=== PATIENT | female | born 1990 | race Caucasian/White ===

== ENCOUNTER 2019-08-29 04:54 | Inpatient (IN) | payer OTHER, SELFPAY ==
[2019-08-29] VITALS (74 sets, daily range): BP systolic 91–143; BP diastolic 54–97; PULSE 73–107; TEMP 36.4–37.2; O2SAT 98–100; BMI 33.7
--- NOTE | 2019-08-29 04:54 | LDADM ---
This patient, Jessika Armenta, was admitted to Labor/Delivery/Recovery 107 on 08/29/19 at 04:54. Plans for labor, pain management and were discussed with patient. Patient/family oriented to hospital policies and general routines including ID bracelet, bed and alarms, visiting hours, pain management, procedures, bathroom and other care routines, personal items, smoking policy, room service/diet and guest tray routines, security routines, and visiting hours. Patient/Family are encouraged to report perceived risks to care and to ask questions if they do not understand what they are told or what they should do. See OBIX for further documentation.
[2019-08-29 05:55] LABS: Basophils Absolute Auto 0.1 K/mm3 (0.0-0.1); Basophils Percent Auto 0.5 % (0.2-1.2); Eosinophils Absolute Auto 0.2 K/mm3 (0-0.3); Eosinophils Percent Auto 1.4 % (0-4.4); Hematocrit 37.2 % (37.0-47.0); Hemoglobin 12.8 g/dL (12.0-15.0); Immature Granulocyte Absolute 0.09 K/mm3 (0.00-0.031); Immature Granulocyte Percent A 0.8 % (0-0.5); Lymphocytes Absolute Auto 2.21 K/mm3 (0.9-3.2); Lymphocytes Percent Auto 20.1 % (18.3-44.2); Mean Corpuscular HGB Conc 34.4 g/dl (32-36); Mean Corpuscular Volume 90.1 fl (80-100); Monocytes Absolute Auto 0.6 K/mm3 (0.1-0.6); Monocytes Percent Auto 5.8 % (2.6-8.5); Neutrophils Absolute Auto 7.9 K/mm3 (1.3-6.7); Neutrophils Percent Auto 71.4 % (45.5-73.1); Platelet Count Result 288 k/mm3 (150-375); Red Blood Count 4.13 M/mm3 (4.2-5.4); Red Cell Distribution Width 12.7 % (11.5-14.5)
[2019-08-29] MEDS: LACTATED RINGERS 1,000 ML 125 ML IV CONT ×3 (06:00→16:13)
[2019-08-29 06:55] LABS: HIV 1/2 Ab P24 Ag Result Negative (Negative)
--- NOTE | 2019-08-29 09:06 | WPDOBADMIT ---
Obstetrics - Admit Note Admission Note: record reviewed. No pertinent additions to the history and/or any subsequent changes in the physical findings that are not consistent with the expected course of the were found. Additions to the history and/or subsequent changes in the physical findings follow. None.Here for MIL. Cervix 3-4/50/-2 AROM with clear fluid. FHTs reactive
[2019-08-29 10:46] LABS: Rapid Plasma Reagin Non-Reactive (NonReactive)
--- NOTE | 2019-08-29 12:44 | WPDANESEPP ---
Anes - Eval Pre Procedure Procedure: labor pain management Date/Time: 08/29/19 12:44 Surgeon: macho Preop Diagnosis: pain during labor Pre Op Diagnosis: Induction of Labor Patient Data Age: 28 Gender: F Height: 5 ft 6 in Weight: 95 kg Last Vital Signs Temp 97.8 F 08/29/19 11:01 Pulse 81 08/29/19 12:16 BP 131/71 08/29/19 12:16 Allergies Allergy/AdvReac Type Severity Reaction Status Date / Time No Known Allergies Allergy Verified 08/06/19 12:35 Home Medications Medication Instructions Recorded Confirmed Type PNV cmb#95-ferrous fumarate-FA 1 tablet PO DAILY 08/06/19 08/06/19 History [] aspirin [Aspirin Low Dose] 81 mg PO DAILY 08/06/19 08/06/19 History ergocalciferol (vitamin D2) 1,250 mcg PO 2XW 08/06/19 08/06/19 History [Vitamin D2] Laboratory Tests 08/29/19 08/29/19 08/29/19 05:31 05:31 05:31 WBC 11.0 K/mm3 H K/mm3 (4.5-10.0) RBC 4.13 M/mm3 L M/mm3 (4.2-5.4) Hgb 12.8 g/dL g/dL (12.0-15.0) Hct 37.2 % % (37.0-47.0) MCV 90.1 fl fl (80-100) MCH 31.0 pg pg (26-34) MCHC 34.4 g/dl g/dl (32-36) RDW 12.7 % % (11.5-14.5) Plt Count 288 k/mm3 k/mm3 (150-375) MPV 11.0 fl H fl (7.4-10.4) Immature Gran % (Auto) 0.8 % H % (0-0.5) Neut % (Auto) 71.4 % % (45.5-73.1) Lymph % (Auto) 20.1 % % (18.3-44.2) [place] % (Auto) 5.8 % % (2.6-8.5) Eos % (Auto) 1.4 % % (0-4.4) Baso % (Auto) 0.5 % % (0.2-1.2) Lymph # (Auto) 2.21 K/mm3 K/mm3 (0.9-3.2) [place] # (Auto) 0.6 K/mm3 K/mm3 (0.1-0.6) Eos # (Auto) 0.2 K/mm3 K/mm3 (0-0.3) Baso # (Auto) 0.1 K/mm3 K/mm3 (0.0-0.1) Abs Immat Gran (auto) 0.09 K/mm3 H K/mm3 (0.00-0.031) Absolute Neuts (auto) 7.9 K/mm3 H K/mm3 (1.3-6.7) Absolute Nucleated RBC 0.0 K/mm3 K/mm3 (0.0-0.012) Nucleated RBC % 0.0 % % (0.0-0.2) RPR Non-reactive (NonReactive) HIV 1&2 Ab/P24 Ag 4thGn Blood Type O Positive Antibody Screen Negative 08/29/19 05:31 WBC RBC Hgb Hct MCV MCH MCHC RDW Plt Count MPV Immature Gran % (Auto) Neut % (Auto) Lymph % (Auto) [place] % (Auto) Eos % (Auto) Baso % (Auto) Lymph # (Auto) [place] # (Auto) Eos # (Auto) Baso # (Auto) Abs Immat Gran (auto) Absolute Neuts (auto) Absolute Nucleated RBC Nucleated RBC % RPR HIV 1&2 Ab/P24 Ag 4thGn Negative (Negative) Blood Type Antibody Screen : gestational age (EDC 08/29/19) Patient hx anesthesia problems: none Family hx anesthesia problems: none [facility] [place] Past Medical History Medical History (Updated 08/29/19 @ 12:44 by Darcie Stewart CRNA) Uterine polyp Surgical History Surgical History (Updated 08/29/19 @ 12:44 by Darcie Stewart CRNA) H/O eye surgery Family History Family History (Updated 08/06/19 @ 12:39 by Treasure De La Rosa RN) Mother H/O thyroidectomy Father High cholesterol Acute myocardial infarction Grandparent Congestive heart failure Social History Social History Smoking status: Never smoker Substance use: never Spiritual care concerns: No Exam Day of Procedure 08/29/19 12:44
[2019-08-29] MEDS: ONDANSETRON INJ 4 MG/2 ML VIAL IV PUSH (15:27)
--- NOTE | 2019-08-29 18:34 | P.PCNOB_ITS ---
OB - Delivery Note Procedure Delivery date: 08/29/19 Procedure: events: Labor Induction Intrapartal events: None Induction method: AROM and per pitocin protocol Delivery monitor: external FHT and internal uterine Route of delivery: Laceration description: Perineal - 2nd Degree Delivery repair: vicryl (3-0) Specimen: No Estimated blood loss (mL): 100 Anesthesia type: Epidural [place] Baby Date of : 08/29/19 Weeks of gestation at delivery: 39 Infant gender: Male Weight (pounds): 6 Weight (ounces): 14 presentation: vertex position: Right Occiput Anterior Placenta delivery description: Spontaneous cord vessel description: 3 Vessels score one minute: 9 score five minutes: 9
--- NOTE | 2019-08-29 18:35 | PM.OBDSVD ---
DS: Admitting Diagnosis Admitting Diagnosis Admitting Diagnosis: IUP 39 wk DS: Discharge Diagnosis Discharge Diagnosis (1) (normal spontaneous vaginal delivery): Code(s): O80 - Encounter for full-term uncomplicated delivery Status: Acute OB - DS: Summary OB Procedures : Ultrasound OB Procedures Intrapartum: Spontaneous Vag Delivery OB Procedures: : None Peripartum Data Delivery Method: Natural Vaginal Laceration description: Perineal - 2nd Degree complications: none Status at Discharge Functional status at discharge: independent ambulation Overall status at discharge: patient is progressing back to baseline Time Spent with Patient Time attestation: Total time spent providing and/or coordinating discharge services: DS: Data Data Completed and Pending Labs on day of discharge: Labs from last 24 hours 08/29/19 08/29/19 08/29/19 05:31 05:31 05:31 WBC RBC Hgb Hct MCV MCH MCHC RDW Plt Count MPV Immature Gran % (Auto) Neut % (Auto) Lymph % (Auto) [place] % (Auto) Eos % (Auto) Baso % (Auto) Lymph # (Auto) [place] # (Auto) Eos # (Auto) Baso # (Auto) Abs Immat Gran (auto) Absolute Neuts (auto) Absolute Nucleated RBC Nucleated RBC % RPR Non-reactive HIV 1&2 Ab/P24 Ag 4thGn Negative Blood Type O Positive Antibody Screen Negative 08/29/19 05:31 WBC 11.0 H RBC 4.13 L Hgb 12.8 Hct 37.2 MCV 90.1 MCH 31.0 MCHC 34.4 RDW 12.7 Plt Count 288 MPV 11.0 H Immature Gran % (Auto) 0.8 H Neut % (Auto) 71.4 Lymph % (Auto) 20.1 [place] % (Auto) 5.8 Eos % (Auto) 1.4 Baso % (Auto) 0.5 Lymph # (Auto) 2.21 [place] # (Auto) 0.6 Eos # (Auto) 0.2 Baso # (Auto) 0.1 Abs Immat Gran (auto) 0.09 H Absolute Neuts (auto) 7.9 H Absolute Nucleated RBC 0.0 Nucleated RBC % 0.0 RPR HIV 1&2 Ab/P24 Ag 4thGn Blood Type Antibody Screen Discharge Plan Discharge Attending physician on discharge: Malia Salinas Discharging Clinician: Malia Salinas Anticipated Discharge Date/Time: 08/31/19 18:36 Patient Disposition: Home, Self-Care Activity: may shower and pelvic rest Diet: regular Patient Instructions: Antibiotic Form Stand Alone Forms: General Discharge Information Follow-up/Referrals: Malia Salinas MD [Physician] - 6 Weeks Discharge Medications: Continued ergocalciferol (vitamin D2) [Vitamin D2] 1,250 mcg (50,000 unit) Capsule 1,250 mcg PO 2XW RF: 0 PNV cmb#95-ferrous fumarate-FA [] 28 mg iron- 800 mcg Tablet 1 tablet PO DAILY RF: 0 Discontinued aspirin [Aspirin Low Dose] 81 mg Tablet,Delayed Release (Dr/Ec) 81 mg PO DAILY RF: 0 Date of admission: 08/29/19 04:54 Primary Care Provider: PHYSICIAN,SAWMILL EQUIPMENT OPERATOR Admitting Provider: Malia Salinas Attending physician on admission: Malia Salinas Condition: Stable
[2019-08-29] MEDS: OXYTOCIN 30 UNITS/NS 500 ML 30 UNITS/500 ML BAG 125 UNITS IV CONT (18:49)
[2019-08-29] MEDS: IBUPROFEN 600 MG TABLET PO (20:03)
[2019-08-29] MEDS: BENZOCAINE 20% AER SPR (*SP) 56 GM CAN 1 SPRAY TOPICAL (20:03)
[2019-08-29] MEDS: WITCH HAZEL 40 PADS 1 PAD TOPICAL (20:03)
--- NOTE | 2019-08-29 20:45 | PC.NURSE ---
This patient, Jessika Armenta, was received from Labor and Delivery on 08/29/19 at 2042. Personal belongings list checked and signed. Patient/family oriented to unit policies and routines
[2019-08-30 05:33] LABS: Hematocrit 32.7 % (37.0-47.0); Hemoglobin 10.9 g/dL (12.0-15.0)
[2019-08-30 08:00] VITALS: BP 131/71; PULSE 94; RESP 20; TEMP 36.6
[2019-08-30] MEDS: IBUPROFEN 600 MG TABLET PO ×3 (09:07→18:29)
[2019-08-30] MEDS: DOCUSATE SODIUM 100 MG CAPSULE PO ×2 (09:08→17:07)
[2019-08-30] MEDS: MULTIVIT/MIN/PREN/FOL AC/IRON TABLET 1 TAB PO (09:08)
--- NOTE | 2019-08-30 10:06 | WPDANLDPN2 ---
Anes-Prog Note L&D Date/Time: 08/30/19 10:06 Comfortable throughout: labor and delivery Neuraxial method: epidural Epidural/Spinal procedure site: clean & non-tender Neuro status: Neuro function grossly intact. Cardiovascular status: normal Respiratory status: normal Airway patency: baseline Mental status: baseline Post-Op hydration status: normal Vital Signs: Last Vital Signs Temp 36.6 C 08/30/19 08:00 Pulse 94 08/30/19 08:00 Resp 20 08/30/19 08:00 BP 131/71 08/30/19 08:00 Pulse Ox 99 08/29/19 13:40 Pain score (VAS): 0/10. Patient resting in bed at time of assessment, support person at bedside. I/O: Intake & Output 08/29/19 08/30/19 08/30/19 23:59 07:59 15:59 Intake Total 1999 Output Total 173 Balance 1827 Post-procedural complaints: none Patient feedback: Patient satisfied with anesthetic care.
--- NOTE | 2019-08-30 10:39 | PM.OBPNVD ---
OB - PN: Subj Subjective Date/time seen: 08/30/19 10:39 Patient comments: no complaints and pain well controlled baby status: doing well OB - PN: Obj Data Labs CBC & Chem 7: 08/30/19 04:34 Labs: Laboratory Results - last 24 hr 08/29/19 08/30/19 05:31 04:34 Hgb 10.9 L Hct 32.7 L RPR Non-reactive OB - PN A/P Plan day: 1 Plan: routine care Time Spent With Patient Time: Total time spent is greater than 50% in coordination of care (as documented) at patient's floor/unit and/or counseling patient: Exam : Bimanual exam- vagina & uterus: other (Uterus firm, nt @U)
[2019-08-30] MEDS: BENZOCAINE 20% AER SPR (*SP) 56 GM CAN 1 SPRAY TOPICAL (14:09)
[2019-08-30] MEDS: WITCH HAZEL 40 PADS 1 PAD TOPICAL (14:09)
[2019-08-30 19:01] VITALS: BP 129/78; PULSE 94; RESP 16; TEMP 36.6; O2SAT 99
--- NOTE | 2019-08-31 03:58 | PM.OBPNVD ---
OB - PN: Subj Subjective Date/time seen: 08/31/19 03:58 Patient comments: no complaints and pain well controlled baby status: doing well OB - PN: Obj Data Labs CBC & Chem 7: 08/30/19 04:34 Labs: Laboratory Results - last 24 hr 08/30/19 04:34 Hgb 10.9 L Hct 32.7 L OB - PN A/P Plan day: 2 Plan: routine care, discharge home and follow up 6 weeks Time Spent With Patient Time: Total time spent is greater than 50% in coordination of care (as documented) at patient's floor/unit and/or counseling patient: Exam : Bimanual exam- vagina & uterus: other (Uterus firm, nt @U)
[2019-08-31] MEDS: MULTIVIT/MIN/PREN/FOL AC/IRON TABLET 1 TAB PO (07:56)
[2019-08-31] MEDS: BENZOCAINE 20% AER SPR (*SP) 56 GM CAN 1 SPRAY TOPICAL (07:56)
[2019-08-31] MEDS: DOCUSATE SODIUM 100 MG CAPSULE PO (07:56)
[2019-08-31] MEDS: WITCH HAZEL 40 PADS 1 PAD TOPICAL (07:56)
[2019-08-31 08:00] VITALS: BP 132/78; PULSE 78; RESP 18; TEMP 36.4
--- NOTE | 2019-08-31 09:19 | PC.NURSE ---
Self care and infant care discharge instructions given including follow up visit date and time. Mother verbalized understanding of infant care. FOB at side. Very pleasant and cooperative. Anxious for discharge.
[2019-09-02 09:51] VITALS: BP 126/79; PULSE 103; RESP 20; TEMP 37.1; O2SAT 99
== END 2019-08-31 10:47 | disposition home or self-care (01) | DRG 807 ==
LOC: ANHLDR 18:37 → ANHOB2 21:07
PROVIDERS: Admitting Provider Obstetrics & Gynecology Gynecology; Visit Provider Obstetrics & Gynecology Gynecology
DX: O76 Abnormality in fetal heart rate and rhythm complicating labor and delivery (principal); Z37.0 Single live birth; O70.1 Second degree perineal laceration during delivery; Z3A.39 39 weeks gestation of pregnancy
CPT/HCPCS: 36415; 85014; 85018; 85025; 86592; 86703; 86850; 86900; 86901; A9270; G0432; J2405; J2590; J2795; J7120

== ENCOUNTER 2022-03-01 12:08 | Outpatient (CLI) | payer OTHER, SELFPAY ==
[2022-03-01 12:28] VITALS: BP 126/76; PULSE 87
[2022-03-01 12:30] VITALS: BP 126/76; PULSE 87; BMI 34.1
[2022-03-01 12:45] VITALS: BP 122/79; PULSE 81
[2022-03-01 12:51] LABS: Basophils Percent Auto 0.2 % (0.2-1.2); Eosinophils Percent Auto 0.4 % (0-4.4); Hematocrit 39.4 % (37.0-47.0); Hemoglobin 13.3 g/dL (12.0-15.0); Immature Granulocyte Absolute 0.05 K/mm3 (0.00-0.031); Immature Granulocyte Percent A 0.5 % (0-0.5); Lymphocytes Absolute Auto 2.12 K/mm3 (0.9-3.2); Lymphocytes Percent Auto 20.5 % (18.3-44.2); Mean Corpuscular HGB Conc 33.8 g/dl (32-36); Mean Corpuscular Volume 88.9 fl (80-100); Mean Platelet Volume 10.7 fl (7.4-10.4); Monocytes Absolute Auto 0.6 K/mm3 (0.1-0.6); Monocytes Percent Auto 5.9 % (2.6-8.5); Neutrophils Absolute Auto 7.5 K/mm3 (1.3-6.7); Neutrophils Percent Auto 72.5 % (45.5-73.1); Platelet Count Result 305 k/mm3 (150-375); Red Blood Count 4.43 M/mm3 (4.2-5.4); Red Cell Distribution Width 12.6 % (11.5-14.5); White Blood Count 10.3 K/mm3 (4.5-10.0)
[2022-03-01 12:53] LABS: Add Urine Microscopic? YES; Appearance Urine Slightly Cloudy (Clear); Bilirubin Urine Negative (Negative); Blood Urine Negative (Negative); Color Urine Light Yellow (Yellow); Glucose Urine UA Negative (Negative); Ketones Urine Negative (Negative); Leukocyte Esterase Ur 2+ LEU/UL (NEGATIVE); Nitrate Urine Negative (Negative); Protein Urine Negative (Negative); Specific Grav Ur <= 1.005 (1.001-1.035); Urobilinogen Urine 0.2 mg/dL (<2.0); pH Urine 5.5 (5.0-9.0)
[2022-03-01 12:57] LABS: Alanine Aminotransferase 22 U/L (6-35); Albumin Level 3.7 g/dL (3.5-5.1); Alkaline Phosphatase 134 U/L (38-126); Anion Gap 8 mmol/L (8-16); Aspartate Amino Transferase 21 U/L (14-36); Bilirubin,Total 0.3 mg/dL (0.2-1.3); Blood Urea Nitrogen 11 mg/dL (7-17); Calcium 8.9 mg/dL (8.4-10.2); Carbon Dioxide 20 mmol/L (22-30); Chloride 106 mmol/L (98-107); Estimated Glomerular Filt Rate > 60; Glucose 81 mg/dL (65-110); Potassium 3.9 mmol/L (3.4-5.0); Sodium 134 mmol/L (137-145); Uric Acid 3.9 mg/dL (2.5-7.5)
[2022-03-01 12:58] LABS: Creatinine Urine 23.2 mg/dL; Total Protein Urine Random 11 mg/dL; Ur Ttl Prot Creatinine Ratio 0.47 mg/mg (0-0.20)
[2022-03-01 13:00] VITALS: BP 123/84; PULSE 81
[2022-03-01 13:15] VITALS: BP 126/75; PULSE 78
[2022-03-01 13:20] VITALS: BP 126/79
[2022-03-01 13:26] LABS: Bacteria Urine 2+ /hpf; RBC Urine 0-2 /hpf (0-2); Squamous Epithelial Cell Urine Occasional /hpf (Few)
== END 2022-03-01 13:26 ==
LOC: ANHOBOP 12:11 → ANHOBPP 12:11
PROVIDERS: Visit Provider Obstetrics & Gynecology Gynecology
DX: O13.9 Gestational [pregnancy-induced] hypertension without significant proteinuria, unspecified trimester (principal); Z3A.00 Weeks of gestation of pregnancy not specified
CPT/HCPCS: 36415; 59025; 80053; 81001; 82570; 84156; 84550; 85025; 87086; 99199

== ENCOUNTER 2022-03-02 13:13 | Outpatient (CLI) | payer OTHER, SELFPAY ==
[2022-03-02 13:13] VITALS: BMI 34.0
[2022-03-02 14:41] LABS: Collection Time Urine 24 HOURS
[2022-03-02 14:44] LABS: Total Volume 24 Hour Urine 2800 ml
[2022-03-02 14:47] LABS: Specific Gravity Ur 1.015; Total Volume 24 Hour Urine 2800 ml
[2022-03-02 15:02] LABS: Total Protein Urine 24 Hr 224 mg/24hr (28-141); Total Protein Urine Random 8 mg/dL
[2022-03-02 15:03] LABS: Creatinine Clearance Urine 184.5 ml/min (75-125); Creatinine Urine 55.8 mg/dL; Patient Weight 210 Lbs
== END 2022-03-02 13:14 | disposition home or self-care (01) ==
LOC: ANHOBOP 13:19
PROVIDERS: Visit Provider Obstetrics & Gynecology Gynecology
DX: Z34.90 Encounter for supervision of normal pregnancy, unspecified, unspecified trimester (principal); Z3A.00 Weeks of gestation of pregnancy not specified
CPT/HCPCS: 81050; 82575; 84156

== ENCOUNTER 2022-03-04 05:58 | Inpatient (IN) | payer OTHER, SELFPAY ==
[2022-03-04] VITALS (74 sets, daily range): BP systolic 115–144; BP diastolic 62–106; PULSE 65–99; RESP 18; TEMP 36.6–36.8; O2SAT 97–100; BMI 34.0
--- NOTE | 2022-03-04 05:58 | LDADM ---
This patient, Jessika Armenta, was admitted to Labor/Delivery/Recovery 106 on 03/04/22 at 05:58. Plans for labor, pain management and were discussed with patient. Patient/family oriented to hospital policies and general routines including ID bracelet, bed and alarms, visiting hours, pain management, procedures, bathroom and other care routines, personal items, smoking policy, room service/diet and guest tray routines, security routines, and visiting hours. Patient/Family are encouraged to report perceived risks to care and to ask questions if they do not understand what they are told or what they should do. See OBIX for further documentation.
[2022-03-04 08:48] LABS: Basophils Percent Auto 0.2 % (0.2-1.2); Eosinophils Absolute Auto 0.1 K/mm3 (0-0.3); Eosinophils Percent Auto 0.9 % (0-4.4); Hematocrit 37.7 % (37.0-47.0); Hemoglobin 12.5 g/dL (12.0-15.0); Immature Granulocyte Absolute 0.03 K/mm3 (0.00-0.031); Immature Granulocyte Percent A 0.4 % (0-0.5); Lymphocytes Absolute Auto 2.19 K/mm3 (0.9-3.2); Lymphocytes Percent Auto 26.8 % (18.3-44.2); Mean Corpuscular HGB Conc 33.2 g/dl (32-36); Mean Corpuscular Hemoglobin 30.3 pg (26-34); Mean Corpuscular Volume 91.3 fl (80-100); Mean Platelet Volume 11.6 fl (7.4-10.4); Monocytes Absolute Auto 0.4 K/mm3 (0.1-0.6); Monocytes Percent Auto 5.1 % (2.6-8.5); Neutrophils Absolute Auto 5.4 K/mm3 (1.3-6.7); Neutrophils Percent Auto 66.6 % (45.5-73.1); Platelet Count Result 270 k/mm3 (150-375); Red Blood Count 4.13 M/mm3 (4.2-5.4); Red Cell Distribution Width 12.7 % (11.5-14.5); White Blood Count 8.2 K/mm3 (4.5-10.0)
[2022-03-04] MEDS: LACTATED RINGERS 1,000 ML 125 ML IV CONT ×2 (08:53→09:51)
[2022-03-04] MEDS: OXYTOCIN 30 UNITS/NS 500 ML 30 UNITS/500 ML BAG IV CONT (08:54)
--- NOTE | 2022-03-04 09:20 | WPDANESEPPF ---
Anes - Initial Pre Proc Eval Procedure: labor epidural Date/Time: 03/04/22 09:20 Surgeon: Malia Salinas MD Pre Op Diagnosis: labor pain Pre Op Diagnosis: IOL Patient Data Age: 31 Gender: F Height: Weight: Last Vital Signs Pulse 81 03/04/22 09:00 BP 123/71 03/04/22 09:00 Allergies Allergy/AdvReac Type Severity Reaction Status Date / Time No Known Allergies Allergy Verified 02/18/22 12:32 Home Medications Medication Instructions Recorded Confirmed Type ergocalciferol (vitamin D2) 1,250 1,250 mcg PO 2XW 08/06/19 03/01/22 History mcg (50,000 unit) capsule (Vitamin D2) vit no.95-ferrous 1 tablet PO DAILY 08/06/19 03/01/22 History fumarate 28 mg-folic acid 800 mcg tablet () aspirin 81 mg tablet,delayed 81 mg PO DAILY 02/18/22 03/01/22 History release (Adrian Low Dose Aspirin) cholecalciferol (vitamin D3) 50 50 mcg PO DAILY 02/18/22 03/01/22 History mcg (2,000 unit) capsule (Vitamin D3) Laboratory Tests 03/04/22 03/04/22 08:38 08:38 WBC 8.2 K/mm3 K/mm3 (4.5-10.0) RBC 4.13 M/mm3 L M/mm3 (4.2-5.4) Hgb 12.5 g/dL g/dL (12.0-15.0) Hct 37.7 % % (37.0-47.0) MCV 91.3 fl fl (80-100) MCH 30.3 pg pg (26-34) MCHC 33.2 g/dl g/dl (32-36) RDW 12.7 % % (11.5-14.5) Plt Count 270 k/mm3 k/mm3 (150-375) MPV 11.6 fl H fl (7.4-10.4) Immature Gran % (Auto) 0.4 % % (0-0.5) Neut % (Auto) 66.6 % % (45.5-73.1) Lymph % (Auto) 26.8 % % (18.3-44.2) [place] % (Auto) 5.1 % % (2.6-8.5) Eos % (Auto) 0.9 % % (0-4.4) Baso % (Auto) 0.2 % % (0.2-1.2) Lymph # (Auto) 2.19 K/mm3 K/mm3 (0.9-3.2) [place] # (Auto) 0.4 K/mm3 K/mm3 (0.1-0.6) Eos # (Auto) 0.1 K/mm3 K/mm3 (0-0.3) Baso # (Auto) 0.0 K/mm3 K/mm3 (0.0-0.1) Abs Immat Gran (auto) 0.03 K/mm3 K/mm3 (0.00-0.031) Absolute Neuts (auto) 5.4 K/mm3 K/mm3 (1.3-6.7) Absolute Nucleated RBC 0.0 K/mm3 K/mm3 (0.0-0.012) Nucleated RBC % 0.0 % % (0.0-0.2) RPR Pending Patient hx anesthesia problems: none Family hx anesthesia problems: none Results Review: All pre-operative results and documents have been reviewed as part of the pre-operative evaluation. [facility] Past Medical History Medical History (Updated 08/31/19 @ 03:58 by Malia Salinas MD) Uterine polyp Surgical History Surgical History (Updated 08/29/19 @ 12:44 by Darcie Stewart CRNA) H/O eye surgery Family History Family History (Updated 02/18/22 @ 12:35 by Treasure De La Rosa RN) Mother H/O thyroidectomy Breast cancer Father Acute myocardial infarction High cholesterol Grandparent Congestive heart failure Social History Social History Smoking status: Never smoker Substance use: never Spiritual care concerns: No Anes - Eval Final PreProcedure Day of Procedure 03/04/22 09:20 Heart: regular rate and rhythm Lungs: clear to auscultation and normal air movement Airway: Mallampati scale class II Neurological: alert and oriented Results Review: All pre-operative results and documents have been reviewed as part of the pre-operative evaluation. Informed Consent: The patient's anesthetic plan and its attendant risks and benefits were discussed with the patient/family/POA. Questions were solicited and answers provided to the satisfaction of the patient/family/POA.
--- NOTE | 2022-03-04 10:49 | WPDOBADMIT ---
Obstetrics - Admit Note Admission Note: record reviewed. No pertinent additions to the history and/or any subsequent changes in the physical findings that are not consistent with the expected course of the were found. Additions to the history and/or subsequent changes in the physical findings follow. Here for MIL at 39 wk with advance dilation. Cervix 5-6 in office Now /-3 AROM with clear fluid. Epidural just placed. FHTs reactive continue pitocin
--- NOTE | 2022-03-04 12:25 | PM.OBPRVD ---
OB - Delivery Note Procedure Delivery date: 03/04/22 Intrapartal Events: Decelerations Induction method: AROM and Per Pitocin Protocol Delivery monitor: External FHT and External Uterine Route of delivery: Laceration Description: Perineal - 1st Degree Delivery repair: vicryl (3-0) Specimen: Yes (placenta) Quantitative Blood Loss (ml): 100 Anesthesia type: Epidural Disposition: Floor [place] Baby Date of : 03/04/22 Weeks of gestation at delivery: 39 Infant gender: Male presentation: vertex position: Right Occiput Anterior Placenta delivery description: Spontaneous Cord Vessel Description: 3 Vessels score one minute: 8 score five minutes: 9
--- NOTE | 2022-03-04 12:27 | PM.OBDSVD ---
DS: Admitting Diagnosis Discharge Date 03/05/22 Admitting Diagnosis IUP 39 wks for [place] DS: Discharge Diagnosis Discharge Diagnosis (1) (normal spontaneous vaginal delivery): Code(s): O80 - Encounter for full-term uncomplicated delivery Status: Acute OB - DS: Summary OB Procedures : NST and Ultrasound OB Procedures Intrapartum: Spontaneous Vag Delivery OB Procedures: : None Peripartum Data Infant Delivery Method: Natural Vaginal Laceration Description: Perineal - 1st Degree complications: none Status at Discharge Functional status at discharge: independent ambulation Overall status at discharge: patient is progressing back to baseline Time Spent with Patient Time attestation: Total time spent providing and/or coordinating discharge services: DS: Data Data Completed and Pending Labs on day of discharge: Labs from last 24 hours 03/04/22 03/04/22 03/04/22 08:38 08:38 08:38 WBC 8.2 RBC 4.13 L Hgb 12.5 Hct 37.7 MCV 91.3 MCH 30.3 MCHC 33.2 RDW 12.7 Plt Count 270 MPV 11.6 H Immature Gran % (Auto) 0.4 Neut % (Auto) 66.6 Lymph % (Auto) 26.8 [place] % (Auto) 5.1 Eos % (Auto) 0.9 Baso % (Auto) 0.2 Lymph # (Auto) 2.19 [place] # (Auto) 0.4 Eos # (Auto) 0.1 Baso # (Auto) 0.0 Abs Immat Gran (auto) 0.03 Absolute Neuts (auto) 5.4 Absolute Nucleated RBC 0.0 Nucleated RBC % 0.0 RPR Pending Blood Type O Positive Antibody Screen Negative Discharge Plan Discharge Attending physician on discharge: Malia Salinas Discharging Clinician: Malia Salinas Anticipated Discharge Date/Time: 03/05/22 12:27 Patient Disposition: Home, Self-Care Activity: may shower and pelvic rest Diet: regular Patient Instructions: Antibiotic Form Stand Alone Forms: General Discharge Information Follow-up/Referrals: Malia Salinas MD [Physician] - 6 Weeks Discharge Medications: Continued cholecalciferol (vitamin D3) [Vitamin D3] 50 mcg (2,000 unit) Capsule 50 mcg PO DAILY ergocalciferol (vitamin D2) [Vitamin D2] 1,250 mcg (50,000 unit) Capsule 1,250 mcg PO 2XW PNV cmb#95-ferrous fumarate-FA [] 28 mg iron- 800 mcg Tablet 1 tablet PO DAILY Discontinued aspirin [Adrian Low Dose Aspirin] 81 mg Tablet,Delayed Release (Dr/Ec) 81 mg PO DAILY Date of admission: 03/04/22 05:58 Primary Care Provider: PHYSICIAN,BATCH AND FURNACE MANAGER Admitting Provider: Malia Salinas Attending physician on admission: Malia Salinas Condition: Stable Health Concerns: Plans condoms until vasectomy complete
[2022-03-04] MEDS: OXYTOCIN 30 UNITS/NS 500 ML 30 UNITS/500 ML BAG 125 UNITS IV CONT (13:01)
--- NOTE | 2022-03-04 15:20 | OBPPTRN ---
Patient transferred to post room # 292 via wheelchair accompanied by in open crib and support person. PT introductions made and plan of care discussed per post , pain management, breast feeding, daily care activities. PT Oriented to unit, room, information board, rooming in, admission packet and security measures. PT received such instructions per one to one discussion , mom baby care guide and demonstrations this shift. NO barriers to learning identified at this time. Patient verbalizes understanding.
[2022-03-05] MEDS: ACETAMINOPHEN 325 MG TABLET 650 MG PO (00:12)
[2022-03-05 00:26] VITALS: BP 127/75; PULSE 81; TEMP 36.5; O2SAT 96
[2022-03-05 04:29] VITALS: BP 131/80; PULSE 94; RESP 16; TEMP 36.8; O2SAT 95
[2022-03-05 05:30] LABS: Hemoglobin 11.5 g/dL (12.0-15.0)
--- NOTE | 2022-03-05 08:02 | WPDANLDPN2 ---
Anes-Prog Note L&D Date/Time: 03/05/22 08:02 Comfortable throughout: labor Neuraxial method: epidural Epidural/Spinal procedure site: clean & non-tender Neuro status: Neuro function grossly intact. Cardiovascular status: normal Respiratory status: normal Airway patency: baseline Mental status: baseline Vital Signs: Last Vital Signs Temp 36.8 C 03/05/22 04:29 Pulse 94 03/05/22 04:29 Resp 16 03/05/22 04:29 BP 131/80 03/05/22 04:29 Pulse Ox 95 03/05/22 04:29 O2 Del Method Room Air 03/04/22 15:20 Pain score (VAS): <3 Patient feedback: Patient satisfied with anesthetic care.
[2022-03-05 08:10] VITALS: BP 139/73; PULSE 75; RESP 16; TEMP 36.3
[2022-03-05] MEDS: MULTIVIT/MIN/PREN/FOL AC/IRON TABLET 1 TAB PO (09:31)
--- NOTE | 2022-03-05 09:48 | PM.OBPNVD ---
OB - PN: Subj Subjective Date/time seen: 03/05/22 09:48 Patient comments: no complaints and pain well controlled baby status: doing well OB - PN: Obj Data Labs 03/05/22 05:21 Labs: Laboratory Results - last 24 hr 03/04/22 03/05/22 08:38 05:21 Hgb 11.5 L Hct 35.0 L Blood Type O Positive Antibody Screen Negative OB - PN A/P Plan day: 1 Plan: routine care, discharge home, follow up 6 weeks and other (plans condoms until vasectomy) Time Spent With Patient Time: Total time spent is greater than 50% in coordination of care (as documented) at patient's floor/unit and/or counseling patient: Exam : Bimanual exam- vagina & uterus: other (Uterus firm, nt @U)
[2022-03-06 08:05] LABS: Rapid Plasma Reagin Non-Reactive (NonReactive)
[2022-03-07 14:18] VITALS: BP 132/62; PULSE 83; RESP 20; TEMP 37.3; O2SAT 97
== END 2022-03-05 14:40 | disposition home or self-care (01) | DRG 807 ==
LOC: ANHLDR 12:28 → ANHOB2 15:36
PROVIDERS: Admitting Provider Obstetrics & Gynecology Gynecology; Visit Provider Obstetrics & Gynecology Gynecology
DX: O36.8330 Maternal care for abnormalities of the fetal heart rate or rhythm, third trimester, not applicable or unspecified (principal); Z37.0 Single live birth; Z3A.39 39 weeks gestation of pregnancy; O70.0 First degree perineal laceration during delivery
CPT/HCPCS: 36415; 85014; 85018; 85025; 86592; 86850; 86900; 86901; 88307; A9270; J2590; J2795; J7120